=== PATIENT | female | born 1985 | race Caucasian/White ===

== ENCOUNTER 2020-07-15 07:39 | Outpatient (CLI) | payer BC, SELFPAY ==
--- NOTE | ~2020-07-15 | MM_ITS ---
EXAMINATION: MM screening pernell BI w rafa HISTORY: Screening mammogram, family history of breast cancer in her sister. TECHNIQUE: Craniocaudal and mediolateral oblique 3-D tomosynthesis images were obtained and synthetic 2-D images were generated. CAD analysis was submitted and interpreted. COMPARISON: No prior mammogram is available for comparison at this institution. BREAST PARENCHYMAL COMPOSITION: The breasts are almost entirely fatty. FINDINGS: RIGHT BREAST: An asymmetry is present in the subareolar aspect of the right breast on the craniocauda l view. LEFT BREAST: There is no evidence of suspicious mass, calcification, or architectural distortion to s uggest malignancy. IMPRESSION: 1. Right breast asymmetry on the craniocaudal view which may represent the patient's baseline however no comparison is currently available. 2. Comparison with prior mammograms is necessary. BI-RADS Category 0: Incomplete: Needs comparison with prior mammograms. Reviewed, dictated and finalized at location A. IMPRESSION: 1. Right breast asymmetry on the craniocaudal view which may represent the gisel ent's baseline however no comparison is currently available. 2. Comparison with prior mammograms is necessary. BI-RADS Category 0: Incomplete: Needs comparison with prior mammograms.
== END 2020-07-15 07:40 | disposition home or self-care (01) ==
LOC: ANHIMG 07:44
PROVIDERS: PCP Family Medicine; Visit Provider Obstetrics & Gynecology
DX: Z12.31 Encounter for screening mammogram for malignant neoplasm of breast (principal)
CPT/HCPCS: 77063; 77067

== ENCOUNTER → 2020-11-21 15:46 | Outpatient (CLI) | payer BC, SELFPAY ==
--- NOTE | ~2020-11-21 | US_ITS ---
EXAMINATION: US pelvic complete w TV DATE: 11/21/2020 16:18 INDICATION: Pelvic pain Comparison:No prior studies for comparison. TECHNIQUE: Multiple transabdominal and endovaginal sonographic images of the pelvis performed. FINDINGS: The uterus measures 10.3 x 6.3 x 7.4 cm. There are multiple uterine fibroids, largest measu ring 3.6 cm greatest dimension. The endometrial complex measures 1.9 cm. The right ovary measures 1.6 x 1 x 1.5 cm and the left ovary is not visualized. There is trace free fluid in the pelvis. There are no abnormal masses seen on either side. IMPRESSION: 1. Enlarged fibroid uterus, largest discrete mass measuring up to 3.6 cm. 2: Endometrial thickening measuring 1.9 cm. Reviewed, dictated and finalized at location A. [employer]
== END ==
PROVIDERS: Visit Provider Family Medicine
DX: R10.2 Pelvic and perineal pain (principal); D25.9 Leiomyoma of uterus, unspecified; R93.89 Abnormal findings on diagnostic imaging of other specified body structures
CPT/HCPCS: 76830; 76856

== ENCOUNTER → 2023-06-07 09:55 | Outpatient (CLI) | payer BC, SELFPAY ==
--- NOTE | ~2023-06-07 | US_ITS ---
EXAMINATION: US pelvic complete w TV DATE: 06/07/2023 10:28 INDICATION: Enlarged uterus. Comparison:Ultrasound dated 11/21/2020 TECHNIQUE: Multiple transabdominal and endovaginal sonographic images of the pelvis performed. FINDINGS: The uterus measures 10.1 x 6.9 x 7.5 cm. The endometrial complex measures 1.5 cm. There are multiple uterine fibroids which are poorly circumscribed. The right ovary is not visualized. The left ovary measures 2.5 x 2.3 x 2.4 cm and contains a 1.7 cm c yst. There is free fluid in the pelvis. There are no abnormal masses seen on either side. IMPRESSION: 1. Enlarged fibroid uterus. Endometrial thickening measuring 1.5 cm. 2: Left ovarian cyst measuring 1.7 cm. Reviewed, dictated and finalized at location L.
== END ==
PROVIDERS: PCP Obstetrics & Gynecology Gynecology; Visit Provider Obstetrics & Gynecology Gynecology
DX: N85.2 Hypertrophy of uterus (principal); Q50.1 Developmental ovarian cyst
CPT/HCPCS: 76830; 76856

== ENCOUNTER 2023-12-23 12:46 | Outpatient (CLI) | payer BC, SELFPAY ==
--- NOTE | ~2023-12-23 | US_ITS ---
EXAMINATION: US pelvic complete w TV DATE: 12/23/2023 13:11 INDICATION: Left ovarian cyst follow-up, history of fibroids TECHNIQUE: Multiple transabdominal and endovaginal sonographic images of the pelvis were obtained. COMPARISON: 06/07/2023 FINDINGS: The uterus measures 11.8 x 6.9 x 7.9 cm. Hypoechoic and isoechoic masses of the uterus have the appearance of intramural fibroids. The largest measures up to 3.3 cm. The endometrial complex me asures 15 mm. The ovaries are not visualized however no adnexal abnormality is seen. There is no free fluid in the pelvis. IMPRESSION: 1. Multiple uterine fibroids. 2. Previously described left ovarian cyst not identified. Reviewed, dictated and finalized at location B. [facility]
== END 2023-12-23 12:47 ==
LOC: GOSHIMG 12:47
PROVIDERS: PCP Obstetrics & Gynecology Gynecology; Visit Provider Obstetrics & Gynecology Gynecology
DX: D25.9 Leiomyoma of uterus, unspecified (principal)
CPT/HCPCS: 76830; 76856